=== PATIENT | male | born 1950 | race Caucasian/White ===

== ENCOUNTER 2020-01-15 00:45 | Inpatient (IN) | payer MEDICARE, OTHER ==
[~2020-01-15] VITALS: Ht 175.3 cm; Wt 104.5 kg
[2020-01-15] MEDS ORDERED: LISINOPRIL20 MG PO ×3 (01:02→14:07)
[2020-01-15] MEDS ORDERED: PLAVIX75 MG PO ×3 (01:02→14:07)
[2020-01-15] MEDS ORDERED: LIPITOR40 MG PO ×3 (01:02→14:07)
[2020-01-15] MEDS ORDERED: PROCARDIA XL60 MG PO (01:03)
[2020-01-15] MEDS ORDERED: LASIX40 MG PO ×3 (01:03→14:08)
[2020-01-15] MEDS ORDERED: ISOSORBIDE MONO60 M1 PO ×3 (01:03→14:08)
[2020-01-15] MEDS ORDERED: HYDRALAZINE HC100 MG PO (01:04)
[2020-01-15] MEDS ORDERED: PROTONIX40 MG PO (01:04)
[2020-01-15] MEDS ORDERED: COREG25 MG PO ×2 (01:04→14:06)
[2020-01-15] MEDS ORDERED: XARELTO15 MG PO (01:05)
[2020-01-15] MEDS ORDERED: LEVEMIR IN100 UNITS/ SC (01:05)
[2020-01-15] MEDS ORDERED: CATAPRES0.2 MG PO (01:07)
[2020-01-15 01:10] LABS: BASOPHILS 0.2 % (0-2); EOSINOPHILS 2.3 % (0-7); HEMOGLOBIN 12.6 g/dL (13.5-17.5); IMMATURE GRANULOCYTES 0.6 % (0-5); LYMPHOCYTES 13.1 % (15-50); MCH 27.6 pg (26.0-34.0); MCHC 33.2 g/dL (31.0-37.0); MCV 83.3 fL (80.0-100.0); MEAN PLATELET VOLUME 9.9 fL (7.4-10.4); MONOCYTES 7.5 % (2-11); NEUTROPHILS 76.3 % (40-80); PLATELET COUNT 278 10x3/uL (130-400); RBC 4.56 10x6/uL (4.20-6.10); RDW 14.4 % (11.5-14.5); WBC 14.1 10x3/uL (4.8-10.8)
[2020-01-15 01:18] LABS: APTT 44.7 SECONDS (22.8-39.4); INR 1.68 (0.85-1.17); PROTIME 19.6 SECONDS (11.6-15.0)
[2020-01-15 01:19] LABS: D-DIMER-QUANTITATIVE 1.84 ug/mLFEU (0.20-0.54)
[2020-01-15 01:20] LABS: CALC OSMOLALITY 279 mosm/kg (275-300); CARBON DIOXIDE 21.7 mmol/L (21.0-32.0); CHLORIDE - SERUM 105 mmol/L (98-107); CREATININE - SERUM 2.6 mg/dL (0.6-1.3); GLUCOSE 179 mg/dL (74-106); POTASSIUM - SERUM 4.3 mmol/L (3.5-5.1); SODIUM 135 mmol/L (136-145); UREA NITROGEN 30 mg/dL (7-18); eGFR NON AFRICAN AMERICAN 26 mL/min (90-120)
[2020-01-15 01:44] LABS: ALBUMIN 2.3 g/dL (3.4-5.0); ALKALINE PHOSPHATASE 139 U/L (30-120); ALT (SGPT) 21 U/L (10-68); BILIRUBIN - TOTAL 0.17 mg/dL (0.2-1.3); CKMB 0.9 U/L (0.0-3.6); CREATINE KINASE 98 UL (21-232); MAGNESIUM - SERUM 1.9 mg/dL (1.8-2.4); PRO BNP 2616 pg/mL (0-125); PROTEIN - SERUM 6.7 g/dL (6.4-8.2)
[2020-01-15 01:46] LABS: TROPONIN-I 0.297 ng/mL (0.000-0.060)
[2020-01-15 03:54] VITALS: BP 147/78
--- NOTE | 2020-01-15 04:57 | NUR ---
PT LYING IN BED RESTING, BREATHS EVEN, SPOUSE AT BEDSIDE.
[2020-01-15 06:04] VITALS: BP 133/83
[2020-01-15 06:53] VITALS: BP 157/86
--- NOTE | 2020-01-15 06:54 | NUR ---
PT IN BED RESTING AT THIS TIME, BREATHS EVEN, NO ACUTE DISTRESS NOTED, WILL CONTINUE TO MONITOR.
--- NOTE | 2020-01-15 07:01 | NUR ---
REPORT GIVEN TO ISELA PIZARRO
[2020-01-15 08:44] LABS: CKMB 0.8 U/L (0.0-3.6); CREATINE KINASE 45 UL (21-232)
[2020-01-15 08:46] LABS: TROPONIN-I 0.326 ng/mL (0.000-0.060)
[2020-01-15 12:00] VITALS: BP 162/85
[2020-01-15 13:36] LABS: CKMB 0.9 U/L (0.0-3.6); CREATINE KINASE 51 UL (21-232)
[2020-01-15 13:37] LABS: TROPONIN-I 0.275 ng/mL (0.000-0.060)
[2020-01-15] MEDS ORDERED: ADALAT CC90 MG PO ×2 (14:06→14:08)
--- NOTE | 2020-01-15 14:47 | NUR ---
TRANSFER FROM ER BY STRETCHER. OREINTED TO ROOM. CALL LIGHT IN REACH.
[2020-01-15 15:11] VITALS: BP 166/87; BMI 34.0
[2020-01-15 16:35] VITALS: Ht 175.3 cm; Wt 104.5 kg
[2020-01-15 18:56] LABS: CREATINE KINASE 43 UL (21-232); TROPONIN-I 0.243 ng/mL (0.000-0.060)
[2020-01-15 20:00] VITALS: BP 117/77
[2020-01-16] VITALS: BP 117/63
[2020-01-16 04:00] VITALS: BP 174/75
[2020-01-16 06:55] LABS: BASOPHILS 0.2 % (0-2); IMMATURE GRANULOCYTES 0.4 % (0-5); LYMPHOCYTES 22.3 % (15-50); MCH 27.2 pg (26.0-34.0); MCHC 32.4 g/dL (31.0-37.0); MCV 84.2 fL (80.0-100.0); MEAN PLATELET VOLUME 10.2 fL (7.4-10.4); MONOCYTES 9.3 % (2-11); NEUTROPHILS 65.8 % (40-80); PLATELET COUNT 252 10x3/uL (130-400); RBC 4.04 10x6/uL (4.20-6.10); RDW 14.3 % (11.5-14.5)
[2020-01-16 06:57] LABS: WBC 9.1 10x3/uL (4.8-10.8)
[2020-01-16 07:52] VITALS: BP 178/77
[2020-01-16 08:02] LABS: ALBUMIN 2.1 g/dL (3.4-5.0); ANION GAP 12.3 mmol/L (8-16); BILIRUBIN - TOTAL 0.19 mg/dL (0.2-1.3); CALCIUM 9.3 mg/dL (8.5-10.1); CREATININE - SERUM 2.7 mg/dL (0.6-1.3); MAGNESIUM - SERUM 1.9 mg/dL (1.8-2.4); POTASSIUM - SERUM 3.3 mmol/L (3.5-5.1); PROTEIN - SERUM 5.9 g/dL (6.4-8.2); URIC ACID 6.1 mg/dL (2.6-7.2)
--- NOTE | 2020-01-16 08:18 | EC ---
PATIENT:MELVIN GALLARDO DATE OF SERVICE: 01/15/20 SEX: M MEDICAL RECORD: [id number] DATE OF : [birth year] LOCATION:D.M2 D.211 AGE OF PATIENT: 69 ADMISSION DATE: 01/15/20 REFERRING PHYSICIAN: INTERPRETING PHYSICIAN: JANAY DE SANTIAGO MD ECHOCARDIOGRAM REPORT ECHO CHARGES 4 ECHO COMPLETE Date: 01/15/20 CLINICAL DIAGNOSIS: CHF ECHOCARDIOGRAPHIC MEASUREMENTS (adult normal given) AC root (d.<3.7cm) 3.0 cm LV Septum d (<1.2 cm> 1.4 cm Valve Excursion 2.1 cm LV Septum (systole) 1.6 cm Left Atria (s.<4.0cm> 4.5 cm LVPW d(<1.2cm) 1.1 cm RV (d.<2.3cm) 3.3 cm LVPW (sytole) 1.2 cm LV diastole(<5.6CM) 4.4 cm MV E-F(>70mm/sec) cm LV systole 3.5 cm LVOT Diameter 1.7 cm MV exc.(>10mm) cm Est.ejection fraction (50-75%) % DOPPLER: LVIT cm/sec A 27 cm/sec E 117 cm/sec LA cm/sec RVSP 16.2 mmHg LVOT 93 cm/sec AOP1/2T m/s Asc. Ao 147 cm/sec RVOT 69 cm/sec RA cm/sec PA 68 cm/sec AV Gradient Peak 8.6 mmHg AV Mean 4.4 mmHg AV Area 1.6 cm MV Gradient Peak 5.5 mmHg MV Mean 2.4 mmHg MV Area cm COMMENTS: Account Liaison: Froilan [facility] Alarm Field Technician: 3 Dr. Greene TAPE# PACS Pericardial Effusion N DATE OF SERVICE: Adequate 2D, color flow imaging, spectral Doppler, and M-Mode LVH is present. LV internal dimension is normal. Wall motion is normal. EF is greater than or equal to 55%. Aortic valve is sclerotic. No evidence of stenosis by Doppler interrogation. Left atrium dilated at 4.5 cm. Mitral valve shows no prolapse. Mild MR. Right-sided chambers are grossly normal. Mild TR. TRANSINT:[id number] Voice Confirmation ID: [id number] DOCUMENT ID: [id number] ECHOCARDIOGRAM REPORT [id number] SAMI,JANAY MERINO MD at 0818 CC: [id number] DICTATION DATE: 01/15/201609 LIFE COACH: 01/15/202053 ADM [place] [id number] [place] [id number]
[2020-01-16 09:22] LABS: ERYTHROCYTE SEDIMENTATION RATE 69 mm/hr (0-20)
[2020-01-16 11:36] LABS: BILIRUBIN NEGATIVE (NEGATIVE); KETONE NEGATIVE (NEGATIVE); NITRITE NEGATIVE (NEGATIVE); UROBILINOGEN NORMAL (NORMAL)
[2020-01-16 11:38] LABS: RED CELLS - URINE 0-5 /hpf (0-5); WHITE CELLS - URINE 0-5 /hpf (NEGATIVE)
[2020-01-16 11:39] LABS: BACTERIA FEW /hpf (NEGATIVE); EPITHELIAL CELLS 0-5 /hpf (0-5)
[2020-01-16] MEDS ORDERED: DILTIAZEM 24HR120 M3 PO (13:00)
[2020-01-16] MEDS ORDERED: PACERONE200 MG PO (13:00)
[2020-01-16] MEDS ORDERED: ISOSORBIDE MONO60 M1 PO (13:02)
--- NOTE | 2020-01-16 13:41 | MORECARE ---
CASE MANAGEMENT DISCHARGE SUMMARY PATIENT: MELVIN GALLARDO UNIT: [id number] ADM DATE: 01/15/20 AGE: 69 : [birth year] SEX: M ROOM/BED: D.2119 AUTHOR: NADIR ESCOBEDO PHYSICIAN: REFERRING PHYSICIAN: ADRIANNA DOOLEY MD DATE OF SERVICE: 01/16/20 Discharge Plan Patient Name: MELVIN GALLARDO [facility] : 1950 Planned Disposition: Home Anticipated Discharge Date: 01/16/20 Discharge Date: Expected LOS: 1 Initial Reviewer: [email or web address] Initial Review Date: 01/16/2020 Generated: 01/16/20 2:41 pm DCPIA - Discharge Planning Initial Assessment Updated by [email or web address]: Daniela Gorman on 01/16/20 1:40 pm * Is the patient Alert and Oriented? Yes * PCP Dr. Yen in [facility] * Preadmission Environment Home with Family * ADLs Partial Dependent * Partial ADLs (Assistance needed) Medication Management * Equipment None * List name and contact numbers for known caregivers / representatives who currently or will assist patient after discharge: Marguerite Gallardo - spouse [phone] * Verbal permission to speak to the caregivers and representatives has been obtained from the patient. Yes * Community resources currently utilized None * Additional services required to return to the preadmission environment? No * Can the patient safely return to the preadmission environment? Yes * Has this patient been hospitalized within the prior 30 days at any hospital? No Patient Name: MELVIN GALLARDO Page [id number] at 1341 All edits/amendments must be made on the electronic document DICTATION DATE: 01/16/20 1341 RN REHAB: AJIT 01/16/20 1341 RPT#: [id number] DC DATE: STATUS: ADM IN [facility] [address] [place] [address] END OF REPORT
--- NOTE | 2020-01-16 13:50 | MORECARE ---
CASE MANAGEMENT DISCHARGE SUMMARY PATIENT: MELVIN GALLARDO UNIT: [id number] ADM DATE: 01/15/20 AGE: 69 : [birth year] SEX: M ROOM/BED: D.2119 AUTHOR: GREGGDOC PHYSICIAN: REFERRING PHYSICIAN: ADRIANNA DOOLEY MD DATE OF SERVICE: 01/16/20 Discharge Plan Patient Name: MELVIN GALLARDO Facility: [facility]:[place] : 1950 Planned Disposition: Home Anticipated Discharge Date: 01/16/20 Discharge Date: Expected LOS: 1 Initial Reviewer: [email or web address] Initial Review Date: 01/16/2020 Generated: 01/16/20 2:49 pm Comments DCP- Discharge Planning Updated by [email or web address]: Daniela Gorman on 01/16/20 12:[address] Patient Name: MELVIN GALLARDO Admission Status: ER Accout number: [id number] Admission Date: 01-15-2020 : 1950 Admission Diagnosis:UNSPECIFIED ABDOMINAL PAIN Attending: ADRIANNA DOOLEY Current LOS: 1 Anticipated DC Date: 01-16-2020 Planned Disposition: Home Primary Insurance: MEDICARE A & B Discharge Planning Comments: MELODY received discharge orders. His is here to pick him up. They live in [place] and was traveling through [place] prior to hospitalization. He is independent with his care and states he does not need any DME or home health. Ambulates without assist device and is up in room upon my entrance. No needs identified. Structural Iron Erector: Daniela Gorman DCPIA - Discharge Planning Initial Assessment Updated by [email or web address]: Daniela Gorman on 01/16/20 1:40 pm * Is the patient Alert and Oriented? Yes * PCP [facility] Yen in [facility] * Preadmission Environment Home with Family * ADLs Partial Dependent * Partial ADLs (Assistance needed) Medication Management * Equipment None * List name and contact numbers for known caregivers / representatives who currently or will assist patient after discharge: Marguerite Gallardo - spouse - [phone] * Verbal permission to speak to the caregivers and representatives has been obtained from the patient. Yes * Community resources currently utilized None * Additional services required to return to the preadmission environment? No * Can the patient safely return to the preadmission environment? Yes * Has this patient been hospitalized within the prior 30 days at any hospital? No Last DP export: 01/16/20 12:41 p Patient Name: MELVIN GALLARDO Page 11501 at 1350 All edits/amendments must be made on the electronic document DICTATION DATE: 01/16/20 134 LICENSED MASSAGE THERAPIST: AJIT 01/16/20 134 RPT#: [id number] DC DATE: STATUS: ADM IN [facility] [address] [place] [address] END OF REPORT
--- NOTE | 2020-01-16 13:54 | NUR ---
IV AND TELEMETRY DCD. DC PLANS GIVEN. ESCORTED TO CAR BY W/C.
--- NOTE | 2020-01-17 07:10 | MORECARE ---
CASE MANAGEMENT DISCHARGE SUMMARY PATIENT: MELVIN GALLARDO UNIT: [id number] ADM DATE: 01/15/20 AGE: 69 : [birth year] SEX: M ROOM/BED: D.2119 AUTHOR: GREGGDOC PHYSICIAN: REFERRING PHYSICIAN: ADRIANNA DOOLEY MD DATE OF SERVICE: 01/17/20 Discharge Plan Patient Name: MELVIN GALLARDO Facility: [facility]:[place] : 1950 Planned Disposition: Home Anticipated Discharge Date: 01/16/20 Discharge Date: 01/16/2020 Expected LOS: 1 Initial Reviewer: [email or web address] Initial Review Date: 01/16/2020 Generated: 01/17/20 8:09 am Comments DCP- Discharge Planning Updated by [email or web address]: Daniela Gorman on 01/16/20 12:[address] Patient Name: MELVIN GALLARDO Admission Status: ER Accout number: [id number] Admission Date: 01-15-2020 : 1950 Admission Diagnosis:UNSPECIFIED ABDOMINAL PAIN Attending: ADRIANNA DOOLEY Current LOS: 1 Anticipated DC Date: 01-16-2020 Planned Disposition: Home Primary Insurance: MEDICARE A & B Discharge Planning Comments: MELODY received discharge orders. His is here to pick him up. They live in [place] and was traveling through [place] prior to hospitalization. He is independent with his care and states he does not need any DME or home health. Ambulates without assist device and is up in room upon my entrance. No needs identified. Private Branch Exchange Installer: Daniela Gorman DCPIA - Discharge Planning Initial Assessment Updated by [email or web address]: Daniela Gorman on 01/16/20 1:40 pm * Is the patient Alert and Oriented? Yes * PCP [facility] Yen in [facility] * Preadmission Environment Home with Family * ADLs Partial Dependent * Partial ADLs (Assistance needed) Medication Management * Equipment None * List name and contact numbers for known caregivers / representatives who currently or will assist patient after discharge: Marguerite Gallardo - spouse - [phone] * Verbal permission to speak to the caregivers and representatives has been obtained from the patient. Yes * Community resources currently utilized None * Additional services required to return to the preadmission environment? No * Can the patient safely return to the preadmission environment? Yes * Has this patient been hospitalized within the prior 30 days at any hospital? No Last DP export: 01/16/20 12:50 p Patient Name: MELVIN GALLARDO Page [id number] at 0710 All edits/amendments must be made on the electronic document DICTATION DATE: 01/17/20708 WRAPPER SELECTOR: AJIT 01/17/20708 RPT#: [id number] DC DATE:01/16/20 STATUS: DIS IN [facility] [address] [place] [address] END OF REPORT
[2020-01-17 07:15] LABS: HEPATITIS C ANTIBODY <0.1 S/CO RAT (0.0-0.9)
== END 2020-01-16 13:55 | disposition home or self-care (01) | DRG 291 ==
LOC: D.ER 00:45 → D.EDHOLD 07:58 → D.M2 07:58
PROVIDERS: Family Medicine; Internal Medicine Nephrology; ADMIT Family Medicine; ATTEND Family Medicine
DX: I13.0 Hypertensive heart and chronic kidney disease with heart failure and stage 1 through stage 4 chronic kidney disease, or unspecified chronic kidney disease (principal); I50.23 Acute on chronic systolic (congestive) heart failure; E87.1 Hypo-osmolality and hyponatremia; N17.9 Acute kidney failure, unspecified; F17.203 Nicotine dependence unspecified, with withdrawal; I25.110 Atherosclerotic heart disease of native coronary artery with unstable angina pectoris; E11.65 Type 2 diabetes mellitus with hyperglycemia; E78.5 Hyperlipidemia, unspecified; J44.9 Chronic obstructive pulmonary disease, unspecified; K21.9 Gastro-esophageal reflux disease without esophagitis; I48.0 Paroxysmal atrial fibrillation; N18.9 Chronic kidney disease, unspecified